=== PATIENT | male | born 1960 | race African-American/Black ===

== ENCOUNTER 2024-02-05 13:31 | Inpatient (IN) | payer MEDICAID ==
[~2024-02-05] VITALS: Ht 172.7 cm; Wt 95.3 kg
[2024-02-05] MEDS: IV NS 0.9% 1,000 ML BAG IV ONE (14:24)
[2024-02-05] MEDS: LEVETIRACETAM (500MG) 1,000 MG in IV NS 0.9% 90 ML IV SCH (14:24)
[2024-02-05 14:32] LABS: BASOPHILS % (AUTO) 0.3 % (0.0-2.0); EOSINOPHILS # (AUTO) 0.2 K/uL (0.0-0.7); EOSINOPHILS % (AUTO) 4.1 % (0.0-6.0); HEMATOCRIT 35 % (39-51); HEMOGLOBIN 11.9 g/dL (13.5-17.5); LYMPHOCYTES # (AUTO) 2.4 K/uL (0.8-4.8); LYMPHOCYTES % (AUTO) 53.3 % (20.0-44.0); MEAN CORPUSCULAR HEMOGLOBIN 30 PG (26.0-33.0); MEAN CORPUSCULAR HGB CONC 34 g/dl (31.0-36.0); MEAN CORPUSCULAR VOLUME 89 fL (80-96); MONOCYTES # (AUTO) 0.4 K/uL (0.1-1.30); MONOCYTES % (AUTO) 9.2 % (2.0-12.0); NEUTROPHILS # (AUTO) 1.5 K/uL (1.8-8.9); NEUTROPHILS % (AUTO) 33.1 % (43.0-81.0); PLATELET COUNT (AUTO) 155 K/uL (150-450); RED BLOOD CELL COUNT(AUTO) 3.99 MIL/uL (4.5-6.0); RED CELL DISTRIBUTION WIDTH 14.1 % (11.5-15.0); WHITE BLOOD COUNT (AUTO) 4.5 K/uL (4.3-11.0)
[2024-02-05 14:46] LABS: ALCOHOL, BLOOD < 3 mg/dL (0-10); CALCIUM, SERUM 8.8 mg/dL (8.5-10.1); CARBON DIOXIDE 23 mmol/L (21-32); CHLORIDE 109 mmol/L (98-107); CREATININE 1.3 mg/dL (0.6-1.3); GLUCOSE 124 mg/dL (74-106); POTASSIUM 3.2 mmol/L (3.5-5.1); SODIUM SERUM 142 mmol/L (136-145); UREA NITROGEN, BLOOD 18 mg/dL (7-18)
[2024-02-05 14:52] LABS: AMPHETAMINE, URINE NEGATIVE (NEGATIVE); BARBITURATE, URINE NEGATIVE (NEGATIVE); BENZODIAZEPINE, URINE NEGATIVE (NEGATIVE); CANNABINOID, URINE NEGATIVE (NEGATIVE); COCCAINE, URINE NEGATIVE (NEGATIVE); OPIATE, URINE NEGATIVE (NEGATIVE); PHENCYCLIDINE SCREEN,URINE NEGATIVE (NEGATIVE)
[2024-02-05] MEDS ORDERED: OLAN10TA3 PO (15:08)
[2024-02-05] MEDS ORDERED: ARIP10TA9 PO (15:08)
[2024-02-05] MEDS ORDERED: AMLO5TAB4 PO (15:08)
[2024-02-05] MEDS ORDERED: SPIR25TA6 PO (15:08)
[2024-02-05] MEDS ORDERED: ATOR20TA PO (15:08)
[2024-02-06] MEDS ORDERED: LEVETIRACETAM (500MG) 500 MG/5 ML VIAL IV ONE (03:08)
[2024-02-06] MEDS: LEVETIRACETAM (500MG) 500 MG in IV NS 0.9% 100 ML IV SCH (09:30)
[2024-02-06] MEDS ORDERED: GADOTERATE MEGLUMINE 10 MMOL/20 ML VIAL IV ONE (13:04)
[2024-02-06 16:00] VITALS: BP 140/78; TEMP 98; O2SAT 100
[2024-02-06] MEDS ORDERED: ACETAMINOPHEN 325 MG TABLET PO PRN (16:30)
[2024-02-06] MEDS ORDERED: MORPHINE SULFATE INJ 2 MG/ML DISP.SYRIN IV PRN (16:30)
[2024-02-06] MEDS ORDERED: ONDANSETRON HCL/PF 4 MG/2 ML VIAL IV PRN (16:30)
[2024-02-06] MEDS ORDERED: MORPHINE SULFATE INJ 4 MG/ML DISP.SYRIN IV PRN (16:30)
[2024-02-06] MEDS: ENOXAPARIN SODIUM 40 MG/0.4 ML DISP.SYRIN SQ SCH (17:17)
[2024-02-06] MEDS: POTASSIUM CHLORIDE 20 MEQ TAB.PRT.SR PO ONE (17:45)
[2024-02-06 20:00] VITALS: BP_SYST 105; BP_DIAS 75; BP_DIAS 79; TEMP 97.7; O2SAT 97
[2024-02-06] MEDS: ATORVASTATIN 10 MG TABLET PO SCH (21:54)
[2024-02-06] MEDS: ARIPIPRAZOLE 5 MG TABLET PO SCH (21:55)
[2024-02-06] MEDS: OLANZAPINE 10 MG TABLET PO SCH (21:55)
[2024-02-07] VITALS: BP 97/63; TEMP 97.9; O2SAT 96
[2024-02-07 04:00] VITALS: BP 116/70; TEMP 98.5; O2SAT 99
[2024-02-07 08:00] VITALS: BP 127/87; TEMP 98.2; O2SAT 100
[2024-02-07] MEDS ORDERED: LEVE500T9 PO (08:14)
[2024-02-07] MEDS: SPIRONOLACTONE 25 MG TABLET PO SCH (09:32)
[2024-02-07] MEDS: AMLODIPINE BESYLATE 5 MG TABLET PO SCH (09:33)
[2024-02-07 12:00] VITALS: BP 118/74; TEMP 98.4; O2SAT 98
[2024-02-07] MEDS: ASPIRIN EC 81 MG TABLET.DR PO SCH (12:42)
[2024-02-07] MEDS ORDERED: LEVETIRACETAM (250 MG) 250 MG TABLET PO SCH (21:00)
== END 2024-02-07 16:30 | disposition home or self-care (01) | DRG 53 ==
LOC: ER 14:07 → TRANSITION 02-06 10:51 → TELE 02-06 14:28
PROVIDERS: ADMIT Internal Medicine; ATTEND Internal Medicine
DX: G40.909 Epilepsy, unspecified, not intractable, without status epilepticus (principal); E78.5 Hyperlipidemia, unspecified; I10 Essential (primary) hypertension; F17.210 Nicotine dependence, cigarettes, uncomplicated; Z86.73 Personal history of transient ischemic attack (TIA), and cerebral infarction without residual deficits; Z20.822 Contact with and (suspected) exposure to COVID-19; F99 Mental disorder, not otherwise specified
CPT/HCPCS: 36415; 70450-TC; 70553-TC; 71045-TC; 80048-TC; 85025-TC; 87081-TC; 95819-TC; A4223; A9575; G0378; G0480; J1650; J1953; J7030; J7050